=== PATIENT | male | born 1985 | race Asian ===

== ENCOUNTER 2023-04-17 06:48 | Emergency (ER) | payer MEDICAID ==
[~2023-04-17] VITALS: Ht 175.3 cm; Wt 70.3 kg
[2023-04-17 07:09] VITALS: BP_SYST 150; PULSE 86; RESP 20; TEMP 97.8; O2SAT 100
[2023-04-17 07:30] LABS: BILIRUBIN,URINE NEGATIVE (NEGATIVE); BLOOD, URINE 3+ (NEGATIVE); CLARITY/URINE CLEAR (CLEAR); COLOR,URINE YELLOW (YELLOW); GLUCOSE,URINE NEGATIVE (NEGATIVE); KETONES,URINE NEGATIVE (NEGATIVE); LEUKOCYTE ESTERASE ,URINE NEGATIVE (NEGATIVE); NITRITE, URINE NEGATIVE (NEGATIVE); PROTEIN URINE NEGATIVE (NEGATIVE); UROBILINOGEN,URINE 0.2 (0.2-1.0)
[2023-04-17 07:44] LABS: BACTERIA,URINE RARE /HPF (None Seen); WBC,URINE 0-3 /HPF (0-3)
[2023-04-17 07:45] LABS: CALCIUM OXALATE CRYSTALS,UR None Seen /HPF (None Seen); CALCIUM PHOSPHATE CRYSTALS,UR None Seen /HPF (None Seen); COARSE GRANULAR CASTS,URINE None Seen /LPF (None Seen); FINE GRANULAR CASTS,URINE None Seen /LPF (None Seen); HYALINE CASTS, URINE None Seen /LPF (None Seen); MUCUS,URINE None Seen /LPF (None Seen); OTHER CASTS, URINE None Seen /LPF (None Seen); OTHER CRYSTALS,URINE None Seen /HPF (None Seen); TRICHOMONAS,URINE None Seen /HPF (None Seen); TRIPLE PHOSPHATE CRYSTAL,UR None Seen /HPF (None Seen); URIC ACID CRYSTALS,URINE None Seen /HPF (None Seen); URINE AMORPHOUS PHOSPHATES None Seen /HPF (None Seen); URINE AMORPHOUS URATE None Seen /HPF (None Seen); WAXY CASTS,URINE None Seen /LPF (None Seen); YEAST,URINE Few /HPF (None Seen)
[2023-04-17 07:52] LABS: ACETONE, SERUM NEGATIVE (NEGATIVE)
[2023-04-17 07:55] LABS: BASOPHILS % (AUTO) 0.3 % (0.0-2.0); EOSINOPHILS % (AUTO) 0.1 % (0.0-4.0); HEMATOCRIT 48.5 % (36-54); HEMOGLOBIN 15.9 g/dL (14.0-18.0); LYMPHOCYTES # (AUTO) 1.1 K/uL (1.0-5.5); LYMPHOCYTES % (AUTO) 10.6 % (20.5-51.5); MEAN CORPUSCULAR HEMOGLOBIN 30 pg (27-31); MEAN CORPUSCULAR HGB CONC 33 % (32-36); MEAN CORPUSCULAR VOLUME 90 fL (79.0-98.0); MONOCYTES # (AUTO) 0.3 K/uL (0.0-1.0); MONOCYTES % (AUTO) 3.1 % (1.7-9.3); NEUTROPHILS % (AUTO) 85.9 % (40.0-70.0); PLATELET COUNT (AUTO) 349 K/uL (130-430); RED BLOOD CELL COUNT(AUTO) 5.38 MIL/uL (4.2-6.2); RED CELL DISTRIBUTION WIDTH 13.1 % (9.0-15.0); WHITE BLOOD COUNT (AUTO) 10.4 K/uL (4.8-10.8)
[2023-04-17 07:59] LABS: ANION GAP 7 (5-15); CALCIUM 9.5 mg/dL (8.4-11.0); CARBON DIOXIDE 29 mmol/L (23-29); CHLORIDE 100 mmol/L (98-107); CREATININE 1.27 mg/dL (0.55-1.30); GFR AFRICAN AMERICAN 81 mL/min (>90); GLUCOSE 109 mg/dL (74-106); POTASSIUM 4.2 mmol/L (3.5-5.1); SODIUM SERUM 136 mmol/L (136-145); UREA NITROGEN, BLOOD 13 mg/dL (8-21)
[2023-04-17 08:09] LABS: PROTHROMBIN TIME 10.1 SECS (9.5-12.5)
[2023-04-17 08:13] LABS: ALANINE AMINOTRANSFERASE 48 U/L (12-78); ALBUMIN 4.5 g/dL (3.4-4.8); AMYLASE 81 U/L (0-100); ASPARTATE AMINOTRANSFERASE 24 U/L (10-37); LIPASE 56 U/L (16-77); TOTAL BILIRUBIN 0.6 mg/dL (0.0-1.0); TOTAL PROTEIN, SERUM 7.6 g/dL (6.4-8.3)
[2023-04-17 08:18] LABS: GFR NON AFRICAN-AMERICAN 67 mL/min (>90)
[2023-04-17] MEDS ORDERED: KETOROLAC TROMETHAMINE 60 MG/2 ML VIAL IM ONE (09:15)
[2023-04-17] MEDS ORDERED: TRAM50TA2 PO (09:23)
[2023-04-17] MEDS ORDERED: IBUP-1971 PO (09:23)
[2023-04-17 09:41] VITALS: BP_SYST 145; PULSE 69; RESP 17; TEMP 97.9; O2SAT 100
== END 2023-04-17 09:39 | disposition home or self-care (01) ==
LOC: SED 06:48
DX: N23 Unspecified renal colic (principal); R11.2 Nausea with vomiting, unspecified; Z79.899 Other long term (current) drug therapy
CPT/HCPCS: 99285; 74176; 80053; 81001; 82009; 82150; 83690; 85025; 85610; 85730; 87086; 36415; 76376; 96372; 83605; 82397; 81000; 81015; J1885